=== PATIENT | female | born 1985 | race Caucasian/White ===

== ENCOUNTER 2017-01-01 13:07 | Emergency (ER) | payer OTHER ==
[~2017-01-01] VITALS: Ht 162.6 cm; Wt 56.5 kg
[~2017-01-01 13:07] MED LIST: HYDR-4003 PO; ONDA4TAB6 PO
[2017-01-01 13:18] VITALS: PULSE 75; RESP 15; O2SAT 96
--- NOTE | 2017-01-01 13:25 | ED.REPORT ---
HPI-Back Pain Under 40 Date of Service Jan 01, 2017 ED Provider: Dr. Diana Pt is a 31 y/o female w/ a hx of kidney stones presenting to the ED c/o left lumbar back pain onset yesterday. She has been seen by the [facility] twice this week and had her back readjusted and believes this may have caused her pain. She denies any mechanism of injury. Pt c/o associated nausea and vomiting. She denies fever, chills, urinary or bowel incontinence. She has had kidney stones previously and her pain is somewhat similar. Nursing Notes Stated Complaint: BACK PAIN/VOMITING Chief Complaint: Back Pain or Injury Nursing Notes Reviewed: Yes Allergies: Coded Allergies: bacitracin (Verified Allergy, Intermediate, Rash, 03/11/16) neomycin (Verified Allergy, Intermediate, Rash, 03/11/16) polymyxin B (Verified Allergy, Intermediate, Rash, 03/11/16) hydromorphone (Verified Adverse Reaction, Intermediate, nausea, dizziness , 01/01/17) I got too much Scheduled PRN Hydrocodone-Acetaminophen 5-325 mg (Hydrocodone-Acetaminophen 5-325 mg) 1 Each Tablet 1-2 TABLET PO Q4H PRN PRN For Pain Hydrocodone-Acetaminophen 5-325 mg (Hydrocodone-Acetaminophen 5-325 mg) 1 Each Tablet 1-2 TABLET PO Q4H PRN PRN For Pain Ondansetron (Zofran) 4 Mg Tablet 4 MG PO Q4H PRN PRN For Nausea Ondansetron ODT (Zofran ODT) 4 Mg Tablet 4 MG PO Q4H PRN PRN For Nausea General Time Seen by MD: 13:25 Chief Complaint Back pain Hx Obtained From: Patient Arrived By: Walk-in Sudden in Onset?: No Onset Occurred: Yesterday Symptom Duration: Since onset Location: : Perispinal lumbar Quality: Painful Severity: Current: Moderate Severity: Maximum: Severe Recent Healthcare: Recent doctor visit Similar Sx Previous: Yes Past Medical History Past Medical History 1. Nephrolithiasis. 2. Endometriosis. 3. Eczema. Past Surgical History None. Family History Mother with nephrolithiasis. Father with diabetes mellitus. Smoking History Never Smoker Social History Alcohol Use: "Social" Drug Use: Denies drug use Other Social History: Good social support, Local resident Ambulatory Status Independent Review of Systems Constitutional: Denies: Chills, Fever GI: Reports: Nausea, Vomiting, Denies: Abdominal pain Musculoskeletal: Reports: Lumbar pain Neurologic: Denies: Bladder dysfunction, Bowel dysfunction Complete sys rev & neg: except as marked. Physical Exam Initial Vital Signs Vital Signs (First) Date Time Temp Pulse Resp B/P Pulse Ox O2 Delivery O2 Flow Rate FiO2 01/01/17 13:18 36.3 75 15 96 Room Air 01/01/17 19:44 106/63 Initial VS: Reviewed, Vital signs normal Head / Eyes: Atraumatic, Normocephalic, PERRL ENT: Mucous membranes moist, Conjunctiva normal, No scleral icterus Neck: Supple, Full range of motion Respiratory: Breath sounds normal, Clear to auscultation, No respiratory distress Cardiovascular: Regular rate & rhythm, Heart sounds normal, Intact distal pulses Extremities: Vascular intact, Neuro intact, No swelling, No tenderness Skin: Warm, Dry, No cyanosis Psychiatric: Mood/affect normal, Behavior normal, Normal thought content General/Constitutional: Awake, Alert, No acute distress, Cooperative, Not toxic appearing Back: Full range of motion, Painless range of motion Left CVAT Neurologic: Oriented X3, Speech NL, No motor deficits, No sensory deficits, Memory NL Interpretation & Diagnostics Lab Results Interpretation Result Diagram: 01/01/17 1425 01/01/17 1425 Test 01/01/17 14:25 01/01/17 15:58 White Blood Count 14.2th/mm3 (3.8-10.1) Red Blood Count 4.98mil/mm3 (3.90-5.20) Hemoglobin 14.2g/dL (12.0-15.6) Hematocrit 41.8% (35.0-46.0) Mean Corpuscular Volume 83.9fL (81-100) Mean Corpuscular Hemoglobin 28.5pg (27.0-35.0) Mean Corpuscular Hemoglobin Concent 34.0% (32.0-37.0) Red Cell Distribution Width 12.7% (12.3-15.4) Platelet Count 377bil/L (150-400) Neutrophils (%) (Auto) 90.4% (40-74) Lymphocytes (%) (Auto) 4.9% (14-46) Monocytes (%) (Auto) 4.1% (4-12) Eosinophils (%) (Auto) 0.1% (0-5) Basophils (%) (Auto) 0.3% (0-3) Sodium Level 137mEq/L (134-144) Potassium Level 4.2mEq/L (3.5-5.2) Chloride Level 97mEq/L (97-108) Carbon Dioxide Level 20mmol/L (18-29) Blood Urea Nitrogen 15mg/dL (6-20) Creatinine 0.85mg/dL (0.57-1.00) Estimat Glomerular Filtration Rate 113mL/min (>59) Glucose Level 96mg/dL (60-99) Calcium Level 9.7mg/dL (8.5-10.1) Magnesium Level 2.2mg/dL (1.6-2.6) Total Bilirubin 1.2mg/dL (0.0-1.2) Aspartate Amino Transf (AST/SGOT) 19U/L (0-50) Alanine Aminotransferase (ALT/SGPT) 12U/L (0-32) Alkaline Phosphatase 40U/L (25-150) Total Protein 8.2g/dL (6.4-8.4) Albumin 4.6g/dL (3.4-5.0) Lipase 38U/L (13-60) Hold Mckeon Top Tube Received (Received) Urine Color Yellow (YELLOW) Urine Appearance Clear (CLEAR,HAZY) Urine pH 6.0 (5.0-8.0) Urine Specific [place] 1.030 (1.003-1.035) Urine Protein 30mg/dL (NEG,TRACE) Urine Glucose (UA) Negativemg/dL (NEGATIVE) Urine Ketones 80mg/dL (NEGATIVE) Urine Occult Blood Large (NEGATIVE) Urine Nitrite Negative (NEGATIVE) Urine Bilirubin Negative (NEGATIVE) Urine Urobilinogen Normalmg/dL (NORMAL) Urine Leukocyte Esterase Negative (NEGATIVE) Urine RBC 11-50/hpf (0-2) Urine WBC 0-5/hpf (0-5) Urine Epithelial Cells None/hpf (NONE-MOD) Urine Crystals None seen (NONE SEEN) Urine Bacteria Few/hpf (NONE-FEW) Urine Hyaline Casts None/lpf (NONE) Urine Granular Casts None seen (NONE SEEN) Urine Waxy Casts None seen (NONE SEEN) Urine Red Blood Cell Casts None seen (NONE SEEN) Urine White Blood Cell Casts None seen (NONE SEEN) Urine Mucus None seen (None Seen) Urine Trichomonas None seen (NONE SEEN) Urine Yeast None (NONE SEEN) Urinalysis Comment None Urine Culture Reflexed Not indicated Re-Eval/Medical Decision Med Decision/Clinical Course 31-year-old female with a history of endometriosis and kidney stones presents with hematuria and left-sided flank pain. She attributes her pain to a low back strain and was recently treated with OMT. Despite being treated her symptoms have continued to worsen. I encouraged her to have a CT of the abdomen performed due to leukocytosis, history of kidney stones, hematuria, and left flank pain, but refused and requested an ultrasound. No obstructing stones were noted and no evidence of pyelonephritis was noted, however I let her know that CT is a better test for these diagnoses. Her pain and nausea improved and she received 2 L of IV fluids , Toradol, and [place]. Plan to discharge with pain meds and nausea meds and follow up in the upcoming week. No signs of UTI were noted and her UA. I think that her leukocytosis could be related to nausea and vomiting and the pain she is having. Abdominal pain is most likely related to her endometriosis although could be related to lumbar strain. Counseled Regarding: Diagnosis, Lab results, Need for follow-up, When/why to return to ED Discharge & Departure Impression: Primary Impression: Left flank pain Additional Impressions: Endometriosis Hematuria Dehydration Nausea and vomiting Vomiting type: unspecified Vomiting Intractability: intractable Qualified Code: R11.2 - Nausea with vomiting, unspecified Leukocytosis Leukocytosis type: unspecified Qualified Code: D72.829 - Elevated white blood cell count, unspecified Ruled Out: Ureterolithiasis, UTI (urinary tract infection), Pyelonephritis Disposition: Home All VS Reviewed: Yes Condition: Stable Patient Instructions: Acute Nausea and Vomiting (ED) Additional Instructions: Thank you for entrusting us with your care today. Your workup today was negative for an obstructing kidney stone as well as a UTI. There was no dangerous cause for your symptoms identified today. Please take the pain and nausea medications as directed. Follow up with your primary care provider next week. Return to the ER for new or worsening symptoms. Referrals: Drarius Diana DO (PCP) Scribe Attestation Portions of this note were transcribed by Didier Ahuja. I, Dr. Diana personally performed the history, physical exam and medical decision-making; I reviewed and confirmed the accuracy of the information in the transcribed note. Signed by Giovanny Awan, 01/01/17 1529 copies to: Darrius Diana Gary R DO Jan 01, 2017 13:25 DIDIER AHUJA Jan 01, 2017 13:45
[2017-01-01] MEDS ORDERED: 0.9% Sodium Chloride 1,000 ML IV ONE ×2 (13:57→16:26)
[2017-01-01] MEDS ORDERED: Ondansetron 2 mg/mL 2 mL Inj IVPUSH ONE (14:00)
[2017-01-01] MEDS ORDERED: Ondansetron 2 mg/mL 2 mL Inj IVPUSH PRN (14:00)
[2017-01-01 14:49] LABS: BASOPHILS % (AUTO) 0.3 % (0-3); EOSINOPHILS % (AUTO) 0.1 % (0-5); MONOCYTES % (AUTO) 4.1 % (4-12); Mean Corpuscular Hemoglobin 28.5 pg (27.0-35.0); Mean Corpuscular Volume 83.9 fL (81-100); NEUTROPHILS % (AUTO) 90.4 % (40-74); Platelet Count 377 bil/L (150-400)
[2017-01-01 15:27] LABS: Magnesium 2.2 mg/dL (1.6-2.6)
[2017-01-01 16:41] LABS: APPEARANCE,URINE CLEAR (CLEAR,HAZY); COLOR,URINE YELLOW (YELLOW); OCCULT BLOOD,URINE LARGE (NEGATIVE); UROBILINOGEN,URINE NORMAL (NORMAL)
[2017-01-01] MEDS ORDERED: HYDROcodone-APAP 10-325 mg PO ONE (18:55)
[2017-01-01] MEDS ORDERED: HYDR-4003 PO (19:02)
[2017-01-01] MEDS ORDERED: ONDA4TAB9 PO (19:02)
--- NOTE | 2017-01-01 19:33 | DRSVH ---
PROCEDURE: US RENAL SONOGRAM INDICATIONS: L flank pain, hematuria, h/o stones, +leukocytosis TECHNIQUE: Real-time scanning was performed of the kidneys and bladder, with image documentation. COMPARISON: None. FINDINGS: Kidneys: Kidneys are normal in size. Right kidney measures 10.0 cm long; left kidney measures 11.5 cm long. Right renal cortical thickness is 1.1 cm; left renal cortical thickness is 1.1 cm. Renal c ortical echotexture is normal. No hydronephrosis on the right. Minimal hydronephrosis of the left ca nnot be excluded.. There is an echogenic focus in midpole of the right kidney suspicious for a 3 mm s tone.. No suspicious solid mass lesions. Bladder: Pre-void bladder volume is 119 mL. Post-void residual is 4 mL. Pre-void images demonstrat e no intraluminal masses or stones. On pre-void images, neither of the ureteral jets are noted with color Doppler interrogation. (Of note, ureteral jets may not be detectable in up to 25% of cases due to insufficient differences in specific gravity between ureteral and bladder urine). Miscellaneous: No free pelvic fluid. IMPRESSION: Question of minimal left hydronephrosis. It is not definite. 3 mm echogenic focus midpole the right kidney suspicious for nonobstructing renal calculus. Dictated by: Ever Sheldon M.D. on 01/01/2017 at 19:28 Approved by: Ever Sheldon M.D. on 01/01/2017 at 19:31
[2017-01-01 19:44] VITALS: BP 106/63; PULSE 81; RESP 16; O2SAT 98
== END 2017-01-01 19:45 | disposition home or self-care (01) ==
LOC: SED 13:07
DX: R10.32 Left lower quadrant pain (principal); N80.9 Endometriosis, unspecified; E86.0 Dehydration; D72.829 Elevated white blood cell count, unspecified; R31.9 Hematuria, unspecified; R11.2 Nausea with vomiting, unspecified; Z88.1 Allergy status to other antibiotic agents; Z88.5 Allergy status to narcotic agent; Z88.8 Allergy status to other drugs, medicaments and biological substances
CPT/HCPCS: 36415; 76770; 80053; 81000; 81025; 83690; 83735; 85025; 96361; 96374; 96375; 99285; J1885; J2270; J2405; J7030

== ENCOUNTER 2017-01-05 15:36 | Emergency (ER) | payer OTHER ==
[~2017-01-05] VITALS: Ht 162.6 cm; Wt 50.9 kg
[~2017-01-05 15:36] MED LIST changes: +ONDA4TAB9 PO
[2017-01-05 15:40] VITALS: BP 128/84; PULSE 73; O2SAT 99
[2017-01-05 16:49] LABS: APPEARANCE,URINE CLEAR (CLEAR,HAZY); COLOR,URINE STRAW (YELLOW); OCCULT BLOOD,URINE NEGATIVE (NEGATIVE); PH,URINE 5.5 (5.0-8.0); UROBILINOGEN,URINE NORMAL (NORMAL)
--- NOTE | 2017-01-05 18:10 | ED.REPORT ---
HPI-Abd Pain F Under 40 Date of Service Jan 05, 2017 ED Provider: Tree Hudson DO A 31 year old female with a history of endometriosis presents to the ED complaining of left sided back pain onset 4 days ago. The patient reports that this is the worse back pain that they have ever experienced. Associated symptoms include fever .She denies any vaginal bleeding, vaginal discharge, or . She is not sexually active. The patient visited the ED 4 days ago with back pain but no fever, and reports that she had imaging performed which revealed kidney stone in her right side that is not moving. She could not keep anything down at her last ED visit. She was given hydrocodone for the pain with some relief, reporting that the pain has been partially resolved, but is not fully gone. She has had follow-up with OMT since ED visit. Nursing Notes Stated Complaint: FEVER/ PAIN-[facility]ENT [facility] Chief Complaint: Female Abdominal Pain Nursing Notes Reviewed: Yes Allergies: Coded Allergies: bacitracin (Verified Allergy, Intermediate, Rash, 01/05/17) neomycin (Verified Allergy, Intermediate, Rash, 01/05/17) polymyxin B (Verified Allergy, Intermediate, Rash, 01/05/17) hydromorphone (Verified Adverse Reaction, Intermediate, nausea, dizziness , 01/05/17) I got too much Scheduled PRN Hydrocodone-Acetaminophen 5-325 mg (Hydrocodone-Acetaminophen 5-325 mg) 1 Each Tablet 1-2 TABLET PO Q4H PRN PRN For Pain Hydrocodone-Acetaminophen 5-325 mg (Hydrocodone-Acetaminophen 5-325 mg) 1 Each Tablet 1-2 TABLET PO Q4H PRN PRN For Pain Ondansetron (Zofran) 4 Mg Tablet 4 MG PO Q4H PRN PRN For Nausea Ondansetron ODT (Zofran ODT) 4 Mg Tablet 4 MG PO Q4H PRN PRN For Nausea General Time Seen by MD: 18:09 Chief Complaint Other (Left sided back pain) Hx Obtained From: Patient Arrived By: Walk-in Sudden in Onset?: No Onset Occurred: 4 days ago Symptom Duration: Since onset Progression since Onset: Unchanged Location: : Flank left Severity: Current: Severe Severity: Maximum: Severe Recent Healthcare: Recent doctor visit (ED visit 4 days ago) Similar Sx Previous: No Past Medical History Past Medical History 1. Nephrolithiasis. 2. Endometriosis. Has had issues with ovarian cyst related to endometriosis. Exercise can cause bleeding. 3. Eczema. Many medications cause nausea, vomiting, consitpation and stomach issues. Allergic to Dilaudid. Denies: Diabetes mellitus, Hypertension Past Surgical History None reported. Family History Mother with nephrolithiasis. Father with diabetes mellitus. Smoking History Never Smoker Social History not sexually active. Alcohol Use: "Social" Drug Use: Denies drug use Other Social History: Good social support, Local resident Ambulatory Status Independent Review of Systems Constitutional: Reports: Fever Female: Denies: , Vaginal bleeding - abnl, Vaginal discharge Musculoskeletal: Reports: Back pain (left-sided) Complete sys rev & neg: except as marked. Physical Exam Initial Vital Signs Vital Signs (First) Date Time Temp Pulse Resp B/P Pulse Ox O2 Delivery O2 Flow Rate FiO2 01/05/17 15:40 36.7 73 128/84 99 Room Air 01/05/17 20:47 16 Initial VS: Reviewed General/Constitutional: Awake, Alert Respiratory / Chest: Atraumatic, Breath sounds NL, Breath sounds = bilat, No respiratory distress, No rales, No rhonchi, No wheezing Cardiovascular: Heart rate NL, Regular rhythm, Heart sounds NL, No gallop, No murmurs, No rubs Tenderness/Guarding/Rebound: Positive: Tender LLQ... (Moderate) Left CVA tednerness. Head / Eyes: Atraumatic, Normocephalic, PERRL, EOMI ENT: Atraumatic, Airway patent Skin: Atraumatic, Color NL, Warm, Dry Neurologic: Oriented X3, Speech NL Neck: Atraumatic, No swelling Upper Extremity / MS: No swelling, No edema Lower Extremity / Pelvis / MS: No swelling, No edema Interpretation & Diagnostics Lab Results Interpretation Result Diagram: 01/05/17 1755 01/05/17 1755 Test 01/05/17 16:35 01/05/17 17:55 Urine Color Straw (YELLOW) Urine Appearance Clear (CLEAR,HAZY) Urine pH 5.5 (5.0-8.0) Urine Specific [place] 1.025 (1.003-1.035) Urine Protein Negativemg/dL (NEG,TRACE) Urine Glucose (UA) Negativemg/dL (NEGATIVE) Urine Ketones Negativemg/dL (NEGATIVE) Urine Occult Blood Negative (NEGATIVE) Urine Nitrite Negative (NEGATIVE) Urine Bilirubin Negative (NEGATIVE) Urine Urobilinogen Normalmg/dL (NORMAL) Urine Leukocyte Esterase Negative (NEGATIVE) Urine RBC 0-2/hpf (0-2) Urine WBC 0-5/hpf (0-5) Urine Epithelial Cells Moderate/hpf (NONE-MOD) Urine Crystals None seen (NONE SEEN) Urine Bacteria None/hpf (NONE-FEW) Urine Hyaline Casts None/lpf (NONE) Urine Granular Casts None seen (NONE SEEN) Urine Waxy Casts None seen (NONE SEEN) Urine Red Blood Cell Casts None seen (NONE SEEN) Urine White Blood Cell Casts None seen (NONE SEEN) Urine Mucus None seen (None Seen) Urine Trichomonas None seen (NONE SEEN) Urine Yeast None (NONE SEEN) Urine Culture Reflexed Not indicated White Blood Count 9.4th/mm3 (3.8-10.1) Red Blood Count 4.80mil/mm3 (3.90-5.20) Hemoglobin 13.8g/dL (12.0-15.6) Hematocrit 40.6% (35.0-46.0) Mean Corpuscular Volume 84.6fL (81-100) Mean Corpuscular Hemoglobin 28.8pg (27.0-35.0) Mean Corpuscular Hemoglobin Concent 34.0% (32.0-37.0) Red Cell Distribution Width 12.4% (12.3-15.4) Platelet Count 403bil/L (150-400) Hold Purple Top Tube Received (Received) Hold Blue Top Tube Received (Received) Sodium Level 134mEq/L (134-144) Potassium Level 4.0mEq/L (3.5-5.2) Chloride Level 97mEq/L (97-108) Carbon Dioxide Level 22mmol/L (18-29) Blood Urea Nitrogen 8mg/dL (6-20) Creatinine 0.71mg/dL (0.57-1.00) Estimat Glomerular Filtration Rate 139mL/min (>59) Glucose Level 116mg/dL (60-99) Calcium Level 9.6mg/dL (8.5-10.1) Total Bilirubin 0.7mg/dL (0.0-1.2) Aspartate Amino Transf (AST/SGOT) 25U/L (0-50) Alanine Aminotransferase (ALT/SGPT) 19U/L (0-32) Alkaline Phosphatase 38U/L (25-150) Total Protein 7.8g/dL (6.4-8.4) Albumin 4.4g/dL (3.4-5.0) HCG Beta Subunit < 0.500mIU/mL Hold [place] Top Tube Received (Received) Hold Mckeon Top Tube Received (Received) CT Abd / Pelvis Interpretation CONCLUSION: Small ammount of pelvic free fluid. There is some fluid attenuation in the endometrial canal. The uterus has a slightlyy heterogenous appearance. Pelvic ultrasound may be helpful for further evaluation. Signed by Brannon Ortiz M.D. 01/05/2017, 3105 Re-Eval/Medical Decision Med Decision/Clinical Course Difficult to say exactly what the fluid collection is. We will treat her with antibiotics and that there is no infectious component. Torsion acute abdominal surgical pathology is been ruled out. Recommend close open patient follow-up. Source of Hx: Old records Re-Evaluation/Progress #1: Time of Eval: 22:43 Re-Evaluation/Progress Note: Rechecked patient who is still in pain. She reports that she has not had her scan performed yet. Re-Evaluation/Progress #2: Time of Eval: 00:05 Re-Evaluation/Progress Note: Rechecked patient and explained CT results. Counseled Regarding: Diagnosis, Lab results, Need for follow-up, When/why to return to ED Discharge & Departure Primary Impression: Abdominal pain Abdominal location: lower abdomen, unspecified Qualified Code: R10.30 - Lower abdominal pain, unspecified Additional Impression: Pelvic fluid collection Disposition: Home Discharge Condition All VS Reviewed: Yes Condition: Stable Patient Instructions: Acute Abdominal Pain (ED), Ovarian Cyst (DC) Additional Instructions: The CT scan and ultrasound demonstrate a fluid collection in your pelvis. This may be a ruptured ovarian cyst. This may also be an infection. This needs to be followed up with closely. Take doxycycline and Flagyl twice daily for 14 days. Take 1-2 [place] every 6 hours as needed for severe pain. Do not drive or drink [place] and some acetaminophen for thing on [place]. Contact the referral substation operator apprentice for follow-up appointment. I recommend that she will follow-up ultrasound after the conclusion of the antibiotics. Do not hesitate to return if any problems or any worsening symptoms. Referrals: [facility] (PCP) Billy Lowry MD Attestation Portions of this note were transcribed by Rony Aguilar. I, Dr. Hudson personally performed the history, physical exam and medical decision-making; I reviewed and confirmed the accuracy of the information in the transcribed note. Signed by: Giovanny Pathak, 01/06/2017, 0235. copies to: Billy Lowry MD; [facility] Tree Hudson DO Jan 05, 2017 18:10 Royn Aguilar Jan 05, 2017 18:24
[2017-01-05 18:15] LABS: Mean Corpuscular Hemoglobin 28.8 pg (27.0-35.0); Mean Corpuscular Volume 84.6 fL (81-100)
[2017-01-05] MEDS ORDERED: Iohexol 300 mg/mL 30 mL Inj PO ONE (18:50)
[2017-01-05] MEDS ORDERED: fentaNYL-PF 50 mCg/mL 2 mL Inj IVPUSH ONE (18:50)
[2017-01-05] MEDS ORDERED: 0.9% Sodium Chloride 1,000 ML IV SCH (18:50)
[2017-01-05] MEDS: Ondansetron 2 mg/mL 2 mL Inj IVPUSH PRN ×2 (19:07→19:13)
[2017-01-05 20:47] VITALS: BP 106/65; PULSE 67; RESP 16; O2SAT 99
[2017-01-06 00:05] VITALS: BP 110/70; PULSE 58; O2SAT 98
[2017-01-06] MEDS ORDERED: cefTRIAXone Inj 250 MG, Lidocaine PF 1% Inj 0.9 ML in Syringe 1 EACH IM ONE (00:15)
[2017-01-06] MEDS ORDERED: HYDROcodone-APAP 5-325 mg Tablet PO ONE (01:20)
[2017-01-06] MEDS ORDERED: _HYDROcodone/APAP 5-325 mg Tablet PO PRN (01:30)
[2017-01-06 01:49] VITALS: BP 136/85; PULSE 70; RESP 16; O2SAT 99
--- NOTE | 2017-01-06 09:01 | DRSVH ---
PROCEDURE: CT ABDOMEN AND PELVIS WITH CONTRAST ([id number]) INDICATIONS: Left flank and left lower quadrant pain. TECHNIQUE: After the administration of oral and intravenous contrast, 5 mm thick sections acquired from the diap hragms to the symphysis. 5 mm thick coronal and sagittal reformats were performed. For radiation do se reduction, the following was used: automated exposure control, adjustment of mA and/or kV accordi ng to patient size. COMPARISON: [facility], US, US PELVIC+TRANSVAG, 01/06/2017, 0:50. FINDINGS: Image quality: Excellent. ABDOMEN: Lung bases: Lung bases are clear. Heart size is normal. Solid organs: Liver and spleen are normal in size and enhancement. Gallbladder appears within pablito l limits without calcified gallstones. Biliary system is non-dilated. Pancreas enhances normally. No adrenal nodules. Kidneys are normal in size and enhancement, without hydronephrosis. Peritoneum and bowel: Stomach, small bowel, and colon loops are normal in caliber and wall thickness . The appendix is normal in appearance. There is a small amount of pelvic free fluid with attenuati on values higher than expected for simple fluid. No free air. Nodes and vessels: No retroperitoneal or mesenteric adenopathy. Aorta and inferior vena cava are no rmal in caliber. Miscellaneous: No ventral hernias. PELVIS: Genitourinary: Bladder wall thickness is normal. There is heterogeneous enhancement of the uterus w ith a small amount of endometrial fluid. The ovaries appear within normal size limits bilaterally. Miscellaneous: No inguinal hernias or adenopathy. Bones: No suspicious bony lesions. No vertebral body compression fractures. IMPRESSION: 1. Small amount of complex free fluid in the pelvis is nonspecific but may be associated with a hemo rrhagic cyst. Further evaluation may be obtained with pelvic ultrasound. 2. Heterogeneous enhancement of the uterus with a small amount of endometrial fluid may also reflect physiologic changes. Further evaluation may also be obtained with pelvic ultrasound. 3. No evidence of appendicitis or hydronephrosis. Dictated by: Benoit Galloway M.D. on 01/06/2017 at 8:50 Approved by: Benoit Galloway M.D. on 01/06/2017 at 9:00
--- NOTE | 2017-01-06 09:26 | DRSVH ---
PROCEDURE: US PELVIC SONOGRAM + TRANSVAGINAL SONOGRAM INDICATIONS: pelvic pain, abnormal ct scan TECHNIQUE: Real-time scanning was performed of the pelvic organs, with image documentation. Additional endovagi nal scanning was necessary due to incomplete visualization of the adnexal and endometrial structures by transabdominal scanning. COMPARISON: [facility], US, US PELVIC+TRANSVAG, 03/31/2016, 7:57. FINDINGS: (orthogonal measurements) Uterus size: 7.8 x 7.0 x 4.0 cm. Endometrium thickness: 8.0 mm Right ovary size: 3.6 x 1.7 x 2.1 cm Left ovary size: 4.0 x 1.9 x 3.0 cm Transabdominal scanning: Limited scanning through the kidneys shows no hydronephrosis. No pathologi c free abdominal or pelvic fluid. Endovaginal scanning: Uterus: Uterus is normal in size and appearance. Endometrium is within normal physiologic limits. Ovaries: Within normal physiologic limits. Predominantly cystic left paraovarian complex mass is pr esent which contains fine low level internal echoes measuring 2.4 x 2.5 x 2.7 cm corresponding to the CT abnormality. Small amount of free intraperitoneal fluid present within the adnexa and cul-de-sac . IMPRESSION: Predominantly cystic left paraovarian complex/hemorrhagic mass present which may represen t a hemorrhagic paraovarian cyst or endometrioma. Recommend short-term followup pelvic ultrasound in 6-12 weeks to assess for interval resolution. Note: These findings are concordant with the preliminary interpretation. Dictated by: Steven KASPER Interpreted: Jessica rTiana MD on 01/06/2017 at 9:23 Transcribed by: ETHAN on 01/06/2017 at 9:26 Approved by: Jessica Triana M.D. on 01/06/2017 at 9:34
== END 2017-01-06 01:51 | disposition home or self-care (01) ==
LOC: SED 15:36
DX: R10.32 Left lower quadrant pain (principal); R18.8 Other ascites; Z88.8 Allergy status to other drugs, medicaments and biological substances; Z88.5 Allergy status to narcotic agent
CPT/HCPCS: 36415; 74177; 76830; 76856; 80053; 81000; 84702; 85027; 87491; 87591; 96361; 96374; 96375; 99285; J0696; J1885; J2405; J3010; J7030; Q9967

== ENCOUNTER 2017-02-20 14:22 | Emergency (ER) | payer OTHER ==
[~2017-02-20] VITALS: Ht 162.6 cm; Wt 49.1 kg
[2017-02-20 14:37] VITALS: BP 114/79; PULSE 86; RESP 18; O2SAT 98
[2017-02-20] MEDS ORDERED: LEVO1TAB66 PO (14:57)
--- NOTE | 2017-02-20 15:23 | ED.REPORT ---
HPI-Abd Pain F Under 40 Date of Service February 20, 2017 ED Provider: Ryan Ortiz MD Nursing Notes Stated Complaint: BACK & LEFT SIDE PAIN/FROM URGENT CARE Chief Complaint: Female Abdominal Pain Nursing Notes Reviewed: Yes ([employer], not reconciled) Allergies: Coded Allergies: beeswax (Verified Allergy, Severe, angioedema, 02/20/17) bacitracin (Verified Allergy, Intermediate, Rash, 01/05/17) neomycin (Verified Allergy, Intermediate, Rash, 01/05/17) polymyxin B (Verified Allergy, Intermediate, Rash, 01/05/17) clindamycin (Verified Allergy, Unknown, rash, vomiting, 02/20/17) honey (Verified Allergy, Unknown, angioedema, 02/20/17) hydromorphone (Verified Adverse Reaction, Intermediate, nausea, dizziness , 01/05/17) I got too much Scheduled Levonorgestrel/Ethinyl Estradiol (Orsythia) 1 Each Tablet 1 TABLET PO DAILY Scheduled PRN Hydrocodone-Acetaminophen 5-325 mg (Hydrocodone-Acetaminophen 5-325 mg) 1 Each Tablet 1-2 TABLET PO Q4H PRN PRN For Pain Ondansetron ODT (Zofran ODT) 4 Mg Tablet 4 MG PO Q4H PRN PRN For Nausea General Time Seen by MD: 15:20 Past Medical History Past Medical History 1. Nephrolithiasis. 2. Endometriosis. Has had issues with ovarian cyst related to endometriosis. Exercise can cause bleeding. 3. Eczema. Many medications cause nausea, vomiting, consitpation and stomach issues. Allergic to Dilaudid. Past Surgical History None reported. Family History Mother with nephrolithiasis. Father with diabetes mellitus. Smoking History Never Smoker Social History not sexually active. Alcohol Use: "Social" Drug Use: Denies drug use Other Social History: Good social support, Local resident Ambulatory Status Independent Physical Exam Initial Vital Signs Vital Signs (First) Date Time Temp Pulse Resp B/P Pulse Ox O2 Delivery O2 Flow Rate FiO2 02/20/17 14:37 37.2 86 18 114/79 98 Room Air Initial VS: Reviewed, Vital signs normal Re-Eval/Medical Decision Source of Hx: Old records Discharge & Departure Referrals: Karey Nunez DO (PCP) Ryan Ortiz MD February 20, 2017 15:23
[2017-02-20] MEDS ORDERED: 0.9% Sodium Chloride 1,000 ML IV ONE (15:25)
[2017-02-20] MEDS ORDERED: Ketorolac 15 mg/mL Inj IVPUSH ONE (15:25)
[2017-02-20] MEDS ORDERED: Ondansetron 2 mg/mL 2 mL Inj IVPUSH ONE (15:25)
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
[2017-02-20 17:15] LABS: BASOPHILS % (AUTO) 1.2 % (0-3); EOSINOPHILS % (AUTO) 2.5 % (0-5); MONOCYTES % (AUTO) 8.4 % (4-12); Mean Corpuscular Volume 85.1 fL (81-100); NEUTROPHILS % (AUTO) 51.6 % (40-74); Platelet Count 355 bil/L (150-400)
[2017-02-20 17:30] VITALS: BP 116/59; PULSE 64; RESP 16; O2SAT 98
[2017-02-20 17:34] LABS: Magnesium 2.1 mg/dL (1.6-2.6)
--- NOTE | 2017-02-20 17:48 | DRSVH ---
PROCEDURE: US PELVIC SONOGRAM + TRANSVAGINAL SONOGRAM INDICATIONS: LLQ pain and tenderness TECHNIQUE: Real-time scanning was performed of the pelvic organs, with image documentation. Additional endovagi nal scanning was necessary due to incomplete visualization of the adnexal and endometrial structures by transabdominal scanning. COMPARISON: [facility], US, US PELVIC+TRANSVAG, 01/06/2017, 0:50. [facility] CT from . FINDINGS: (orthogonal measurements) Uterus size: 11.45 cm, 5.23 cm, 7.86 cm Endometrium thickness: 5.70 mm Right ovary size: 1.57 cm, 2.61 cm, 1.16 cm Left ovary size: 1.86 cm, 3.61 cm, 2.37 cm Transabdominal scanning: Limited scanning through the kidneys shows no hydronephrosis. No pathologi c free abdominal or pelvic fluid. Endovaginal scanning: Uterus: Uterus is normal in size and appearance. Endometrium is within normal physiologic limits. Ovaries: The right ovary measures 2.6 cm on 20 CM of normal internal parenchymal echogenicity and sma ll follicles. The left ovary measures 3.0 manometry 0.4 CM with a hypoechoic complex mass in its lateral aspect inc reased since the previous study measuring M. [id number] 0.9 CM. Possible smaller but otherwise emily lar mass medial to the left ovary. KIDNEYS: The right kidney is also directly normal. There is a hypoechoic mass with surrounding vascul arity in the left kidney measuring 2.0 x 1.1 x 1.4 CM. IMPRESSION: 1. Mass is adjacent to the left ovary has minimally increased in size since the recent ultrasound mos t consistent with an endometrioma. Recommend gynecology consultation. If these findings are not surgi leslie removed or further evaluated with pelvic MRI with and without contrast, yearly ultrasonographic surveillance will be needed. 2. Otherwise, ultrasonographically normal uterus and ovaries. 3. Hypoechoic left renal area with surrounding vascularity. No abnormality was seen at this site on t he previous CT. This finding may represent mild hydronephrosis. The lack of CT correlate makes a mass unlikely. Consider MRI with and without contrast for further evaluation. Otherwise, attention to thi s area on followup studies is recommended. Renal cell carcinoma is highly unlikely given the patient' s young age. Dictated by: Mark Martin M.D. on 02/20/2017 at 17:35 Approved by: Mark Martin M.D. on 02/20/2017 at 17:46
[2017-02-20 19:25] LABS: APPEARANCE,URINE CLEAR (CLEAR,HAZY); COLOR,URINE YELLOW (YELLOW); OCCULT BLOOD,URINE LARGE (NEGATIVE); UROBILINOGEN,URINE NORMAL (NORMAL)
[2017-02-20 20:29] VITALS: BP 116/73; PULSE 67; RESP 16; O2SAT 99
[2017-02-20 22:23] VITALS: BP 118/72; PULSE 66; RESP 17; O2SAT 98
[2017-02-21 00:36] VITALS: BP 120/73; PULSE 62; RESP 16; O2SAT 99
[2017-02-21] MEDS ORDERED: DOCU-41 PO (01:02)
[2017-02-21] MEDS ORDERED: ONDA4TAB12 PO (01:02)
[2017-02-21] MEDS ORDERED: HYDR-4003 PO (01:02)
--- NOTE | 2017-02-21 08:32 | DRSVH ---
PROCEDURE: US RENAL SONOGRAM INDICATIONS: eval for ureteral stone TECHNIQUE: Real-time scanning was performed of the kidneys and bladder, with image documentation. COMPARISON: [facility], US, US PELVIC+TRANSVAG, 02/20/2017, 16:19. [facility] l, CT, CT ABD PELVIS W CON, 01/05/2017, 23:01. [facility], US, US RENAL, 01/01/2017, 18:27 . FINDINGS: Kidneys: Kidneys are normal in size. Right kidney measures 9.6 cm long; left kidney measures 10.1 c m long. Right renal cortical thickness is 1.0 cm; left renal cortical thickness is 1.2 cm. Renal co rtical echotexture is normal. No hydronephrosis. Microcalcifications are seen within the bilateral k idneys measuring less than 5 mm diameter. Hypoechoic focus near the left interpolar kidney measures 1 7 mm (previously measured 20 mm). No suspicious solid mass lesions. Bladder: Pre-void bladder volume is 116 mL. Post-void residual is 0 mL. Pre-void images demonstrat e no intraluminal masses or stones. On pre-void images, bilateral ureteral jets are noted with color Doppler interrogation. (Of note, ureteral jets may not be detectable in up to 25% of cases due to i nsufficient differences in specific gravity between ureteral and bladder urine). Miscellaneous: No free pelvic fluid. IMPRESSION: 1. No hydronephrosis. 2. Small nonobstructing bilateral renal calculi. 3. Resolving left interpolar hypoechoic focus. 4. Concordant with preliminary interpretation. Dictated by: Katie Robledo M.D. on 02/21/2017 at 8:28 Approved by: Katie Robledo M.D. on 02/21/2017 at 8:30
== END 2017-02-21 01:12 | disposition home or self-care (01) ==
LOC: SED 14:22
DX: R10.2 Pelvic and perineal pain (principal); Z88.1 Allergy status to other antibiotic agents; Z88.5 Allergy status to narcotic agent; Z91.018 Allergy to other foods
CPT/HCPCS: 36415; 76770; 76830; 76856; 80053; 81000; 81002; 81025; 83690; 83735; 85025; 87491; 87591; 96361; 96374; 96375; 96376; 99285; G0463; J1885; J2270; J2405; J7030